=== PATIENT | male | born 1965 | race Hispanic/Latino ===

== ENCOUNTER 2020-06-11 07:57 | Emergency (ER) | payer BC ==
[~2020-06-11] VITALS: Ht 170.2 cm; Wt 79.0 kg
[~2020-06-11 07:57] MED LIST: CIPROFLOXACN500 MG PO; FLEXERIL5 M1 PO; NAPROSYN500 MG PO; NYSTAT/TRIA2 TOP; [UNRECOGNIZED DRUG - OTHER]
[2020-06-11 08:40] LABS: HEMATOCRIT 43.8 % (39.0-50.0); HEMOGLOBIN 15.2 g/dl (14.0-18.0); IMMATURE GRANULOCYTES 0.3 % (0.0-5.0); MEAN CELL VOLUME 85.7 fL CALC (80.0-100.0); MEAN CORPUSCULAR HGB 29.7 pG CALC (26.0-32.0); MEAN CORPUSCULAR HGB CONC 34.7 g/dL CAL (32.0-36.0); NEUT# 3.83 thou/uL (1.82-7.42); RED BLOOD COUNT 5.11 mill/uL (4.70-6.10); RED CELL DISTRI WIDTH 11.5 % (11.5-15.5)
[2020-06-11] MEDS ORDERED: DIAZEPAM5 MG PO (08:40)
[2020-06-11 08:57] LABS: ALBUMIN 4.3 g/dL (3.2-5.0); ALKALINE PHOSPHATASE 74 u/l (38-126); ANION GAP 10 (6-22 (CALC)); BILIRUBIN, TOTAL 1.2 mg/dL (0.0-1.4); BUN 16 mg/dL (9-20); BUN/CREATININE RATIO 18 (12-20 (CALC)); CARBON DIOXIDE 27 mmol/l (22-30); CHLORIDE 106 mmol/l (95-108); CREATININE 0.9 mg/dL (0.7-1.3); GFR > 60 ML/MIN (>=60 (CALC)); GFR FOR AFR.AMER. > 60 ML/MIN (>=60 (CALC)); LIPASE 79 u/l (23-300); POTASSIUM 4.3 mmol/l (3.5-5.1); SGOT/AST 25 u/l (17-59); SODIUM 138 mmol/l (137-146); TOTAL PROTEIN 7.6 g/dL (6.3-8.2)
[2020-06-11 09:04] LABS: ACT PARTIAL THROMBO TIME 25.4 SECONDS (20.0-32.5); PROTHROMBIN TIME 10.2 SECONDS (9.0-12.5)
[2020-06-11 09:08] LABS: URINE BILIRUBIN - DIPSTICK NEGATIVE (NEGATIVE); URINE BLOOD DIPSTICK NEGATIVE (NEGATIVE); URINE COLOR YELLOW; URINE GLUCOSE - DIPSTICK NEGATIVE (NEGATIVE); URINE KETONE NEGATIVE (NEGATIVE); URINE LEUK ESTERASE NEGATIVE (NEGATIVE); URINE NITRITE - DIPSTICK NEGATIVE (Negative); URINE PROTEIN - DIPSTICK NEGATIVE (NEG-TRACE); URINE SPECIFIC GRAVITY 1.015; URINE UROBILINOGEN - DIPSTICK 0.2 E.U./dL (0.2)
[2020-06-11] MEDS ORDERED: PROTONIX40 M2 PO (09:16)
[2020-06-11] MEDS ORDERED: COLACE100 MG PO (09:16)
[2020-06-11 09:27] VITALS: BP 132/79
== END 2020-06-11 09:32 | disposition home or self-care (01) | DRG 395 ==
LOC: ED 07:57
DX: K64.9 Unspecified hemorrhoids (principal); R10.33 Periumbilical pain; R10.30 Lower abdominal pain, unspecified

== ENCOUNTER 2020-07-13 07:17 | Day surgery (SDC) | payer BC ==
[~2020-07-13] VITALS: Ht 170.2 cm; Wt 79.4 kg
[~2020-07-13 07:17] MED LIST changes: +COLACE100 MG PO; +DIAZEPAM5 MG PO; +PROTONIX40 M2 PO
[2020-07-13 10:40] VITALS: BP 145/80
== END 2020-07-13 10:57 | disposition home or self-care (01) | DRG 379 ==
LOC: ENDO 07:17 → ORM 08:00 → ENDO 08:00 → ORM 10:00 → ENDO 10:57
PROVIDERS: ATTEND Surgery
PROC: 0DJD8ZZ Inspection of Lower Intestinal Tract, Via Natural or Artificial Opening Endoscopic (ICD-10-PCS; principal; 2020-07-13)
PROC: 0DB98ZX Excision of Duodenum, Via Natural or Artificial Opening Endoscopic, Diagnostic (ICD-10-PCS; 2020-07-13)
PROC: 0DB78ZX Excision of Stomach, Pylorus, Via Natural or Artificial Opening Endoscopic, Diagnostic (ICD-10-PCS; 2020-07-13)
DX: K29.51 Unspecified chronic gastritis with bleeding (principal); K64.8 Other hemorrhoids; K63.5 Polyp of colon; B96.81 Helicobacter pylori [H. pylori] as the cause of diseases classified elsewhere; Z20.828 Contact with and (suspected) exposure to other viral communicable diseases

== ENCOUNTER 2021-12-16 17:41 | Emergency (ER) | payer OTHER ==
[~2021-12-16] VITALS: Ht 170.2 cm; Wt 86.3 kg
[2021-12-16 18:22] VITALS: BP 146/82
[2021-12-16 18:30] VITALS: BP 135/85
[2021-12-16 18:45] VITALS: BP 130/82
[2021-12-16 19:00] VITALS: BP 135/83
[2021-12-16 19:15] VITALS: BP 152/93
[2021-12-16] MEDS ORDERED: NAPROXEN500 MG PO (19:49)
[2021-12-16] MEDS ORDERED: HYDROCO/APAP1 TA9 PO (19:49)
[2021-12-16 19:54] VITALS: BP 150/70
== END 2021-12-16 19:59 | disposition home or self-care (01) | DRG 563 ==
LOC: ED 17:41
DX: S43.102A Unspecified dislocation of left acromioclavicular joint, initial encounter (principal); S80.812A Abrasion, left lower leg, initial encounter; W17.89XA Other fall from one level to another, initial encounter; Y93.89 Activity, other specified; Y92.89 Other specified places as the place of occurrence of the external cause; Y99.0 Civilian activity done for income or pay